=== PATIENT | male | born 1945 | race Caucasian/White ===

== ENCOUNTER → 2017-10-11 | Day surgery (SDC) | payer MEDICARE, BC ==
[~2017-10-11] MED LIST: Lactated Ringers 1,000 ML IV SCH; Propofol 200 MG/20 ML SDV IV ONE
--- NOTE | 2017-10-11 14:08 | OR ---
DATE OF OPERATION: 10/11/2017 PREOPERATIVE DIAGNOSIS: FAMILY HISTORY OF COLON CANCER. POSTOPERATIVE DIAGNOSIS: FAMILY HISTORY OF COLON CANCER. SURGEON: Philippe Michelle MD PROCEDURE: FULL-LENGTH COLONOSCOPY WITH POLYP REMOVAL X1. ANESTHESIA: [employer]. COMPLICATIONS: None. SPECIMEN: Small villous adenoma, hepatic flexure. RECOMMENDATIONS: Followup colonoscopy in 3 to 5 years pending path report. INDICATIONS: The patient has a family history of colon cancer in the father. He is due for a 0-ptwu-secalhoe scope. DESCRIPTION OF PROCEDURE: The patient's prepped and draped, placed in the left lateral decubitus position. A lubricated Olympus colonoscope was inserted and easily advanced to the cecum. Direct visualization of cecal valve and appendiceal orifice was accomplished. The bowel prep was fine. Upon withdrawal, the cecum and ascending colon were benign. At the hepatic flexure, the patient had a small flat villous adenoma, well less than 0.5 cm removed in its entirety with 3 cold forceps biopsies. The rest of the transverse and descending colons were benign. The patient does have scattered diverticula throughout most of the sigmoid and the rectosigmoid area, mild to moderate in severity. No further polyps, lesions, ulcerations, or masses were found. The rectal vault was unremarkable. Retroflexion of scope in the rectum showed no anal lesions. Air was suctioned and scope removed without complication. CITLALI/JUNG /[id number]
== END ==
LOC: CC.SDS 08:13
PROVIDERS: ATTEND Family Medicine
DX: Z12.11 Encounter for screening for malignant neoplasm of colon (principal); D12.2 Benign neoplasm of ascending colon; K57.30 Diverticulosis of large intestine without perforation or abscess without bleeding; N40.0 Benign prostatic hyperplasia without lower urinary tract symptoms; R97.20 Elevated prostate specific antigen [PSA]; E78.5 Hyperlipidemia, unspecified; Z88.5 Allergy status to narcotic agent; Z80.0 Family history of malignant neoplasm of digestive organs; Z79.82 Long term (current) use of aspirin; Z79.899 Other long term (current) drug therapy; Z90.49 Acquired absence of other specified parts of digestive tract; Z98.890 Other specified postprocedural states; Z87.891 Personal history of nicotine dependence
CPT/HCPCS: 45380; J2704; J7120; 00812; 88305

== ENCOUNTER → 2021-12-08 | Day surgery (SDC) | payer MEDICARE ==
[~2021-12-08] MED LIST changes: +Lidocaine 2% 5 ML SDV ONE; +Phenylephrine 1% 10 MG/ML SDV ONE; -Propofol 200 MG/20 ML SDV IV ONE; +Propofol 200 MG/20 ML SDV ONE
== END ==
LOC: CC.SDS 06:29
PROVIDERS: ATTEND Family Medicine
DX: Z12.11 Encounter for screening for malignant neoplasm of colon (principal); D12.2 Benign neoplasm of ascending colon; D12.3 Benign neoplasm of transverse colon; D12.5 Benign neoplasm of sigmoid colon; K57.30 Diverticulosis of large intestine without perforation or abscess without bleeding; K64.9 Unspecified hemorrhoids; N40.0 Benign prostatic hyperplasia without lower urinary tract symptoms; E78.5 Hyperlipidemia, unspecified; R09.89 Other specified symptoms and signs involving the circulatory and respiratory systems; Z79.899 Other long term (current) drug therapy; Z98.890 Other specified postprocedural states; Z80.0 Family history of malignant neoplasm of digestive organs; Z88.8 Allergy status to other drugs, medicaments and biological substances; Z79.82 Long term (current) use of aspirin; Z90.49 Acquired absence of other specified parts of digestive tract; Z87.891 Personal history of nicotine dependence
CPT/HCPCS: 88305; J2370; J2704; J7120